=== PATIENT | male | born 1980 | race African-American/Black ===

== ENCOUNTER 2016-09-18 15:29 | Outpatient (CLI) | payer MEDICARE ==
[2015-12-31 05:13] VITALS: BP 153/91
[2016-09-18 15:55] LABS: BASOPHILS % 0.4 (0.0-1.5); EOSINOPHILS % 1.5 % (0.0-6.8); LYMPHOCYTES # 2.4 # k/uL (0.6-4.0); MEAN CORPUSCULAR HEMOGLOBIN 29.1 pg (28.0-34.0); MONOCYTES # 0.3 # k/uL (0.0-0.9); MONOCYTES % 5.3 % (0.0-11.0); NEUTROPHILS # 3.4 # k/uL (1.4-7.7)
[2016-09-18 15:56] LABS: APPEARANCE,URINE Clear (CLEAR); COLOR,URINE Yellow (YELLOW); OCCULT BLOOD,URINE Negative (NEGATIVE); UROBILINOGEN URINE 0.2 Eu (0.2-1.0)
[2016-09-18 16:27] LABS: eGFR (African) > 60; eGFR (Non-African) > 60
== END 2016-09-18 15:30 ==
LOC: LAB 15:29
PROVIDERS: ATTEND Family Medicine
DX: E11.9 Type 2 diabetes mellitus without complications (principal); I10 Essential (primary) hypertension; R35.8 Other polyuria
CPT/HCPCS: 36415; 80053; 81002; 83036; 85025

== ENCOUNTER 2016-11-03 15:52 | Outpatient (CLI) | payer MEDICARE ==
[2015-12-31 05:13] VITALS: BP 153/91
== END 2016-11-03 15:53 ==
LOC: LAB 15:52
PROVIDERS: ATTEND Family Medicine
DX: E11.9 Type 2 diabetes mellitus without complications (principal)
CPT/HCPCS: 36415; 83036

== ENCOUNTER 2017-08-13 17:07 | Outpatient (CLI) | payer MEDICARE ==
[2015-12-31 05:13] VITALS: BP 153/91
== END 2017-08-13 17:10 ==
LOC: LAB 17:07
PROVIDERS: ATTEND Family Medicine
DX: E29.1 Testicular hypofunction (principal); E11.9 Type 2 diabetes mellitus without complications
CPT/HCPCS: 36415; 83036; 84402

== ENCOUNTER 2018-01-21 16:45 | Outpatient (CLI) | payer MEDICARE ==
[2015-12-31 05:13] VITALS: BP 153/91
== END 2018-01-21 17:00 ==
LOC: LAB 16:45
PROVIDERS: ATTEND Family Medicine
DX: E11.9 Type 2 diabetes mellitus without complications (principal); R63.5 Abnormal weight gain
CPT/HCPCS: 36415; 83036; 84443

== ENCOUNTER 2018-01-31 17:45 | Emergency (ER) | payer MEDICARE ==
[2018-01-31] MEDS ORDERED: PROMETHAZINE HCL 25 MG/ML VIAL IM ONE (17:54)
[2018-01-31 17:56] VITALS: BP 156/89
[2018-01-31 18:27] LABS: BASOPHILS % 0.4 (0.0-1.5); EOSINOPHILS % 1.8 % (0.0-6.8); MEAN CORPUSCULAR HEMOGLOBIN 30.2 pg (28.0-34.0); MEAN CORPUSCULAR VOLUME 89.5 fl (80.0-100.0); MONOCYTES % 6.1 % (0.0-11.0)
[2018-01-31 18:41] LABS: eGFR (African) > 60; eGFR (Non-African) > 60
[2018-01-31] MEDS ORDERED: ONDANSETRON HCL 4 MG TAB.RAPDIS PO ONE (19:11)
[2018-01-31] MEDS ORDERED: IBUPROFEN 200 MG TABLET PO ONE (19:11)
--- NOTE | 2018-01-31 19:13 | ED Physician Documentation ---
Nausea/Vomiting/Diarrhea - HISTORIAN Historian: patient - HPI Stated Complaint: N/V/D Chief Complaint: Nausea,Vomiting,Diarrhea Onset: other (yesterday) Context: denies: out of country travel, bad food, recent trauma Severity: moderate Further Comments: yes (37 year old male patient presents with complaints of nausea and diarrhea x 4 today; denies fever or chills. C/O left wrist pain x 7 days.) - Associated Symptoms Vomiting: mild Diarrhea: mild Abdominal Pain: diffuse - ROS CONST: denies: fever, sweating, chills CVS/RESP: denies: chest pain, shortness of breath, cough, dry cough, non- productive cough, productive cough, bloody cough, other GI/: none EYES/ENT: none MS/SKIN/LYMPH: joint pain (left wrist) NEURO/PSYCH: none - PAST HX Past History: diabetes Type 2 Other History: hypertension, other (HTN, GERD, ED, sleep apnea, ) Allergies/Adverse Reactions: Allergies Allergy/AdvReac Type Severity Reaction Status Date / Time lisinopril AdvReac Nausea/Vomi Verified 01/31/18 17:56 ting Home Medications: Ambulatory Orders Medication Instructions Recorded Ondansetron HCl Rapdis [Zofran Odt] 4 mg PO Q6 PRN #30 tab 01/31/18 - SOCIAL HX Smoking History: cigarettes - FAMILY HX Family History: denies: none - VITAL SIGNS Vital Signs: Vital Signs Temp Pulse Resp BP Pulse Ox 97.0 F L 99 H 17 156/89 97 01/31/18 19:20 01/31/18 19:20 01/31/18 19:20 01/31/18 19:20 01/31/18 19:20 - REVIEWED ASSESSMENTS Nursing Assessment Reviewed: Yes Vitals Reviewed: Yes Progress - Progress Progress: patient refused IM phenergan for nausea Patient refused toradol IM for wrist pain Request school excuse for missing class today. Medicated with PO zofran and ibuprofen while in ER. At discharge; patient was seen eating M&M from [employer] machine in waiting room. ED Results Lab/Radiology - Lab Results Lab Results: Lab Results 01/31/18 01/31/18 18:15 18:15 WBC 7.80 K/ul K/ul (4.00-12.00) RBC 4.47 M/ul M/ul (3.90-5.20) Hgb 13.5 g/dL g/dL (12.0-18.0) Hct 40.0 % % (37.0-53.0) MCV 89.5 fl fl (80.0-100.0) MCH 30.2 pg pg (28.0-34.0) MCHC 33.8 g/dL g/dL (30.0-36.0) RDW 12.7 % % (11.3-14.3) Plt Count 324 K/mm3 K/mm3 (130-400) Neut % (Auto) 51.6 % % (39.0-79.0) Lymph % (Auto) 36.3 % % (16.0-50.0) Sharp % (Auto) 6.1 % % (0.0-11.0) Eos % (Auto) 1.8 % % (0.0-6.8) Baso % (Auto) 0.4 (0.0-1.5) Neut # (Auto) 4.0 # k/uL # k/uL (1.4-7.7) Lymph # (Auto) 2.8 # k/uL # k/uL (0.6-4.0) Sharp # (Auto) 0.5 # k/uL # k/uL (0.0-0.9) Eos # (Auto) 0.1 # k/uL # k/uL (0.0-0.6) Baso # (Auto) 0.0 # k/uL # k/uL (0.0-0.5) Reactive Lymphs % 3.8 % % (0.0-5.0) Reactive Lymphs # 0.3 # k/uL # k/uL (0.0-0.8) Sodium 139 mmol/L mmol/L (136-145) Potassium 4.0 mmol/L mmol/L (3.5-5.1) Chloride 100 mmol/L mmol/L (98-107) Carbon Dioxide 28 mmol/L mmol/L (22-30) BUN 11 mg/dL mg/dL (9-20) Creatinine 0.50 mg/dL L mg/dL (0.66-1.25) Estimated Creat Clear 399 Est GFR ( Amer) > 60 (60 - ) Est GFR (Non-Af Amer) > 60 (60 - ) Glucose 178 mg/dL H mg/dL (74-106) Calcium 10.2 mg/dL mg/dL (8.4-10.2) Total Bilirubin 0.3 mg/dL mg/dL (0.2-1.3) AST 31 U/L U/L (15-46) ALT 74 U/L H U/L (13-69) Alkaline Phosphatase 101 U/L U/L (38-126) Total Protein 8.6 g/dL H g/dL (6.3-8.2) Albumin 4.7 g/dL g/dL (3.5-5.0) - Orders Orders: ED Orders Category Date Time Status CBC/PLATELET/DIFF Stat Lab 01/31/18 18:15 Completed CMP Stat Lab 01/31/18 18:15 Completed Ibuprofen [Advil] Med 01/31/18 19:11 Discontinued 600 mg PO NOW ONE Ondansetron HCl Rapdis [Zofran Odt] Med 01/31/18 19:11 Discontinued 4 mg PO NOW ONE Promethazine HCl [Phenergan] Med 01/31/18 17:54 Discontinued 25 mg IM NOW ONE Nausea Physical Exam - EXAM General Appearance: no acute distress, alert Respiratory: no resp distress, chest non-tender, breath sounds normal CVS: reg rate & rhythm, heart sounds normal, equal pulses, no murmur, no gallop , PMI nml, no JVD, no friction rub, 24 Abdomen: non-tender, no organomegaly, other (morbid obesity) Skin: normal color, warm/dry, NR, INT, PAL, DR Extremities: non-tender, normal range of motion, no evidence of injury, no edema , other (left wrist with positive Amelia) Neuro/Psych: oriented X3, CN's nml as tested, motor nml, sensation nml, mood/ affect nml Discharge Clincal Impression: Encounter to obtain excuse from school, Left wrist pain, Nausea Prescriptions: Ondansetron HCl Rapdis [Zofran Odt] 4 mg PO Q6 PRN #30 tab PRN Reason: Nausea / Vomiting Referrals: Manuel Artis MD [Primary Care Provider] - 2 Days Additional Instructions: Diet: Clear liquids Sprite/7-up Juices apple, white grape Gatorade/Powerade Jello Popsicles When tolerating clear liquids, advance to bland/brat diet - such as crackers, rice, Bananas, apples/applesauce or toast Tylenol or ibuprofen as needed for wrist discomfort. Over the counter Imodium for diarrhea - follow package directions. Return to the emergency department or call your doctor, if you are having severe abdominal pain, fever >101.0, or if there is blood in the vomit or diarrhea, or you cannot keep down liquids or solid food. Condition: Stable Disposition: 01 HOME, SELF-CARE Decision to Admit: NO Decision Time: 19:13
== END 2018-01-31 19:20 | disposition home or self-care (01) ==
LOC: ED 17:45
DX: M25.532 Pain in left wrist (principal); R11.0 Nausea
CPT/HCPCS: 80053; 85025; 99283

== ENCOUNTER 2018-06-05 13:54 | Outpatient (CLI) | payer MEDICARE ==
--- NOTE | 2018-06-05 19:58 | Diagnostic Imaging Report ---
EDIN GARCIA [facility] [address] [facility] [address] [place], [place]. [address] Report Submission Date: Jun 05, 2018 3:24:38 PM ENTERTAINER OR VARIETY ARTIST Patient Study Name: ASAEL HANEY Date: Jun 05, 2018 2:00:11 PM ENTERTAINER OR VARIETY ARTIST Modality Type: CT\SR Gender: M Description: CT ABD PELVIS W/O CO : 80 Institution: [facility] Physician: EDIN GARCIA Examination: CT Abdomen/pelvis History: RT SIDED FLANK PAIN X2 DAYS AND HEMATURIA, PT STATES NO HX OF KIDNEY STONES OR ABDOMINAL SURGERIES (Hx) Comparison exams: None available Technique: CT Abdomen/pelvis without IV protocol. Findings: Liver demonstrates diffuse low attenuation. Spleen, adrenals, pancreas, kidneys and gallbladder are without gross irregularity given exam technique. No gallstone. No suspicious renal calcifications. Ureters are nondilated in their course through the abdomen and pelvis. No central calcifications. Bladder margin within normal limits. Abdominal aorta without aneurysm or peripheral atherosclerotic disease. Cardiac silhouette is not enlarged. No pericardial effusion. Bowel unopacified limiting evaluation. No abnormal dilation. Stool within the large bowel limiting sensitivity. No mesenteric inflammatory changes or free fluid. Appendix is visualized and is without inflammatory changes. Osseous structures appropriate for age. Lung bases without infiltrate. No effusion. Impression: No acute upper abdominal organ inflammatory process. No abnormal bowel dilation or inflammation. Moderate large bowel stool - constipation. Fatty liver. No gallstone. No suspicious renal calcifications or abnormal ureteric dilation. No lung base consolidation or effusion. Electronically signed on Jun 05, 2018 3:24:38 PM ENTERTAINER OR VARIETY ARTIST by: Doug HASSAN
== END 2018-06-05 13:55 ==
LOC: RAD 13:54
PROVIDERS: ATTEND Physician Assistant
DX: K59.00 Constipation, unspecified (principal); R10.9 Unspecified abdominal pain; R31.9 Hematuria, unspecified
CPT/HCPCS: 74176